=== PATIENT | female | born 1960 | race Caucasian/White ===

== ENCOUNTER 2017-04-22 11:18 | Observation (INO) ==
[2017-04-22] MEDS ORDERED: 0.9 % Sodium Chloride 1,000 ML IVC ONE ×2 (11:44→12:45)
[2017-04-22] MEDS ORDERED: Ondansetron 4 MG/2 ML VIAL IVP ONE (12:02)
[2017-04-22] MEDS ORDERED: Ketorolac 30 MG/ML VIAL IVP ONE (12:02)
[2017-04-22 12:12] LABS: Basophils % 0.4 %; Eosinophils # 0.1 K/mcL (0.0-0.6); Eosinophils % 1.4 %; Hematocrit 43.8 % (35.3-44.9); Hemoglobin 14.9 g/dL (11.5-15.4); Immature Granulocytes % 0.4 % (0-4); Lymphocytes # 2.6 K/mcL (0.6-4.6); Lymphocytes % 27.1 %; Mean Corpuscular Hemoglobin 31.1 pg (28.0-33.3); Mean Corpuscular Volume 91.4 fL (83.0-100.0); Mean Platelet Volume 9.6 fL (9.4-12.4); Monocytes # 0.6 K/mcL (0.0-1.3); Monocytes % 5.8 %; Neutrophils # 6.1 K/mcL (1.6-8.9); Platelet Count 289 K/mcL (140-400); Red Blood Count 4.79 M/mcL (3.82-4.97); Red Cell Distribution Width 13.6 % (11.5-14.5); Segmented Neutrophils % 64.9 %
--- NOTE | 2017-04-22 12:19 | Emergency Department Note ---
Disposition Clinical Impression: Pancreatitis Disposition: Admitted As Inpatient Condition: Fair Time of Disposition: 13:29 Nausea/Vomiting/Diarrhea HPI - General Chief complaint: ED General Medical Stated complaint: headache, body aches, nauseaded Source: patient, family Mode of arrival: ambulatory Limitations: no limitations Nursing Notes Reviewed: Yes Vital Signs Reviewed: Yes - History of Present Illness HPI Narrative: 2 weeks ago missed Michaela noticed the onset of some nausea and diarrhea. She has had 15 loose stools per day for 2 weeks. She is not sure of the last time she had a solid normal meal because nausea has kept her from eating. When she does eat she has some upper abdominal pain that seems to get a little worse. No blood in the stool. She does report that they are somewhat greenish in color and on direct questioning it has an oily consistency to it as well. She does not drink from a well. No ill contacts with similar symptoms. She does not have chickens reptiles and has not had any recent travel. She also reports that about a week ago she had the gradual onset of a headache which is typical for a migraine for her in that it is behind both eyes but this one also involves the neck as well. She has not actually vomited although feels as though she will. She has been dizzy and lightheaded as well. No shortness of breath diaphoresis. She has not run a fever. Normal bowel habits are once a day formed without straining. Last week she was supposed to start on Lyrica and took a few doses but feels like that made some of her symptoms were so she stopped that. Pt Subjective Complaint: nausea, diarrhea, abdominal pain - Related Data Home Medications Medication Instructions Recorded Confirmed ALPRAZolam [Xanax 0.25 MG Tablet] 0.25 mg PO HS 02/13/16 04/22/17 Acyclovir [Zovirax] 400 mg PO BID 02/13/16 04/22/17 Ondansetron HCl 4 mg PO Q6H 02/13/16 04/22/17 Pramipexole [Mirapex] 1 mg PO TID 02/13/16 04/22/17 Temazepam [Restoril] 30 mg PO HS 02/13/16 04/22/17 Venlafaxine HCl [Venlafaxine HCl 225 mg PO DAILY 02/13/16 04/22/17 ER] Pregabalin [Lyrica] 200 mg PO BID 04/22/17 04/22/17 Tramadol HCl [Ultram] 50 mg PO TID PRN 04/22/17 04/22/17 Allergies Allergy/AdvReac Type Severity Reaction Status Date / Time codeine AdvReac Intermediate See Verified 06/15/15 17:58 Comments morphine AdvReac Intermediate Vomiting Verified 06/15/15 17:58 Constitutional: Denies: fever, chills Eyes: Reports: vision change (Transient blurriness on rising along with dizziness and lightheadedness for the last week or so) ENT ED: Denies: ear pain, throat pain, congestion, dysphagia Cardiovascular: Denies: chest pain, palpitations Respiratory: Denies: cough Gastrointestinal: Reports: abdominal pain, nausea, diarrhea. Denies: vomiting, constipation, melena, hematochezia Genitourinary: Denies: urgency, dysuria, frequency, hematuria Musculoskeletal: Reports: myalgia Integumentary: Denies: rash Neurological: Reports: headache, paresthesias (She has some numbness and tingling in her right ankle secondary to a trauma for which she was started on the Lyrica. She has also had some periodic tingling in an ulnar distribution especially right upper extremity for several months now. Neither of these is worse in the last couple of weeks.) Endocrine: Reports: fatigue Past Medical History - Past Medical History Medical history: Reports: migraine, other Surgical history: Reports: hysterectomy, orthopedic, other, other Psychiatric history: Reports: anxiety, depression [employer] history: Reports: no [employer] history - Social History Smoking Status: Current every day smoker Smokeless Tobacco Status: No Alcohol use: Reports: none Drug use: Reports: none Physical Exam - General Limitations: no limitations General appearance: alert, in no apparent distress - Head Head exam: normocephalic - Eye Eye exam: Present: PERRL, EOMI. Absent: scleral icterus - ENT ENT exam: normal oropharynx, mucous membranes dry, TM's normal bilaterally, normal external ear exam - Neck Neck exam: Present: normal inspection, full ROM, tenderness (Mild pain to palpation bilateral paracervical cervical musculature with increased tone.). Absent: meningismus, lymphadenopathy - Chest Chest inspection: Present: normal inspection, symmetric chest wall rise - Respiratory Respiratory exam: Present: normal lung sounds bilaterally. Absent: respiratory distress, wheezes, stridor - Cardiovascular Cardiovascular exam: Present: regular rate, normal rhythm, tachycardia, normal heart sounds. Absent: systolic murmur, diastolic murmur - Abdominal Exam Abdominal exam: Present: soft, tenderness (She reports mild tenderness epigastrium), normal bowel sounds, scar (Consistent with laparoscopic cholecystectomy a year ago). Absent: distention, guarding, rebound, rigidity - Extremities Exam Extremities exam: Present: normal inspection. Absent: pedal edema, calf tenderness (No calf erythema cord or edema) - Back Exam Back exam: Present: normal inspection - Neurological Exam Neurological exam: Present: alert - Psychiatric Psychiatric exam: Present: normal affect, normal mood - Skin Skin exam: Present: warm, dry, intact. Absent: rash Course Vital Signs Temperature 97.6 F 04/22/17 11:30 Pulse Rate 113 04/22/17 11:30 Respiratory Rate 16 04/22/17 11:30 Blood Pressure 103/72 04/22/17 11:30 O2 Sat by Pulse Oximetry 95 04/22/17 11:30 Temperature 97.6 F 04/22/17 11:30 Pulse Rate 78 04/22/17 12:48 Respiratory Rate 16 04/22/17 14:18 Blood Pressure 107/64 04/22/17 14:18 O2 Sat by Pulse Oximetry 98 04/22/17 12:48 Oxygen Delivery Oxygen Delivery Room Air Nausea/Vomiting/Diarrhea - [facility] Narrative Medical decision making narrative: After the first liter of fluid was completed she did not yet need to urinate. She did report feeling better in terms of her headache neck pain abdominal pain and nausea. Another liter was given and started just before 1 PM. After labs all returned she was reexamined. Abdominal exam nondistended positive bowel sounds she has some persistent discomfort on palpation of the epigastrium. Very mild elevation of the lipase. This could be a mild case of pancreatitis which would also go with the oily stools and worsening of pain on by mouth intake for the last couple of weeks. I do not see an indication for imaging at this point. It would be prudent however to keep her nothing by mouth and give her IV fluids to allow this to completely resolve. She does not drink alcohol and has no gallbladder. I commended the reasoning for observing her overnight and she voiced understanding. She was transferred to the floor in improved condition. - Lab Data Lab results reviewed: Yes I reviewed the patient's lab results. Result diagrams: 04/22/17 11:44 04/22/17 11:44 Lab Results 04/22/17 04/22/17 04/22/17 Range/Units 11:44 11:44 11:44 WBC 9.4 (4.3-11.1) K/mcL RBC 4.79 (3.82-4.97) M/mcL Hgb 14.9 (11.5-15.4) g/dL Hct 43.8 (35.3-44.9) % MCV 91.4 (83.0-100.0) fL MCH 31.1 (28.0-33.3) pg MCHC 34.0 (31.6-35.5) g/dL RDW 13.6 (11.5-14.5) % Plt Count 289 (140-400) K/mcL MPV 9.6 (9.4-12.4) fL Immature Gran % 0.4 (0-4) % Seg Neutrophils % 64.9 % Lymphocytes % 27.1 % Monocytes % 5.8 % Eosinophils % 1.4 % Basophils % 0.4 % Neutrophils # 6.1 (1.6-8.9) K/mcL Lymphocytes # 2.6 (0.6-4.6) K/mcL Monocytes # 0.6 (0.0-1.3) K/mcL Eosinophils # 0.1 (0.0-0.6) K/mcL Basophils # 0.0 (0.0-0.2) K/mcL Sodium 140 (136-145) mEq/L Potassium 3.9 (3.5-4.5) mEq/L Chloride 105 (98-109) mEq/L Carbon Dioxide 22 (19-29) mEq/L BUN 10 (7-20) mg/dL Creatinine 0.99 (0.57-1.11) mg/dL Est GFR ( Amer) > 60 (> 60) Est GFR (Non-Af Amer) 58 L (> 60) BUN/Creatinine Ratio 10 (6-26) Glucose 103 H (70-99) mg/dL Calculated Osmolality 289 (280-300) Calcium 9.9 (8.6-10.8) mg/dL Phosphorus 3.4 (2.3-4.7) mg/dL Magnesium 2.3 (1.6-2.6) mg/dL Total Bilirubin 0.4 (0.2-1.2) mg/dL AST 15 (5-34) Units/L ALT 12 (0-55) Units/L Alkaline Phosphatase 188 H (38-126) Units/L Serum Total Protein 8.2 (6.0-8.3) g/dL Albumin 3.8 (3.5-5.0) g/dL Globulin 4.4 H (2.4-3.5) g/dL Albumin/Globulin Ratio 0.9 L (1.1-2.2) Amylase 54 (25-125) Units/L Lipase 91 H (8-78) Units/L Urine Color (Yellow) Urine Clarity (Clear) Urine pH (5.0-8.0) pH Units Ur Specific [place] (1.010-1.025) Urine Protein (Neg-Trace) mg/dL Urine Glucose (UA) (Normal) mg/dL Urine Ketones (Negative) mg/dL Urine Blood (Negative) Urine Nitrite (Negative) Urine Bilirubin (Negative) Urine Urobilinogen (Normal) mg/dL Ur Leukocyte Esterase (Negative) Urine Microscopic RBC (0-3) per hpf Urine Microscopic WBC (0-3) per hpf Ur Squamous Epith Cells (None-Few) per lpf Amorphous Sediment (Few) Urine Bacteria (None-Few) per hpf Urine Mucus (Few) Ur Culture Indicated? (NO) Urine Opiates Screen (Hpuuhj=710) ng/mL Acetaminophen (10-30) mcg/mL Ur Barbiturates Screen (Dlinuq=112) ng/mL Ur Phencyclidine Scrn (Cutoff=25) ng/mL Ur Amphetamines Screen (Pnwpmq=0109) ng/mL U Benzodiazepines Scrn (Bvvibg=929) ng/mL Urine Cocaine Screen (Cutoff= 300) ng/mL U Marijuana (THC) Screen (Cutoff = 50) ng/mL 04/22/17 04/22/17 04/22/17 Range/Units 11:44 12:30 12:30 WBC (4.3-11.1) K/mcL RBC (3.82-4.97) M/mcL Hgb (11.5-15.4) g/dL Hct (35.3-44.9) % MCV (83.0-100.0) fL MCH (28.0-33.3) pg MCHC (31.6-35.5) g/dL RDW (11.5-14.5) % Plt Count (140-400) K/mcL MPV (9.4-12.4) fL Immature Gran % (0-4) % Seg Neutrophils % % Lymphocytes % % Monocytes % % Eosinophils % % Basophils % % Neutrophils # (1.6-8.9) K/mcL Lymphocytes # (0.6-4.6) K/mcL Monocytes # (0.0-1.3) K/mcL Eosinophils # (0.0-0.6) K/mcL Basophils # (0.0-0.2) K/mcL Sodium (136-145) mEq/L Potassium (3.5-4.5) mEq/L Chloride (98-109) mEq/L Carbon Dioxide (19-29) mEq/L BUN (7-20) mg/dL Creatinine (0.57-1.11) mg/dL Est GFR ( Amer) (> 60) Est GFR (Non-Af Amer) (> 60) BUN/Creatinine Ratio (6-26) Glucose (70-99) mg/dL Calculated Osmolality (280-300) Calcium (8.6-10.8) mg/dL Phosphorus (2.3-4.7) mg/dL Magnesium (1.6-2.6) mg/dL Total Bilirubin (0.2-1.2) mg/dL AST (5-34) Units/L ALT (0-55) Units/L Alkaline Phosphatase (38-126) Units/L Serum Total Protein (6.0-8.3) g/dL Albumin (3.5-5.0) g/dL Globulin (2.4-3.5) g/dL Albumin/Globulin Ratio (1.1-2.2) Amylase (25-125) Units/L Lipase (8-78) Units/L Urine Color Yellow (Yellow) Urine Clarity Clear (Clear) Urine pH 6.0 (5.0-8.0) pH Units Ur Specific [place] 1.025 (1.010-1.025) Urine Protein 30 H (Neg-Trace) mg/dL Urine Glucose (UA) Normal (Normal) mg/dL Urine Ketones Negative (Negative) mg/dL Urine Blood Negative (Negative) Urine Nitrite Negative (Negative) Urine Bilirubin Negative (Negative) Urine Urobilinogen Normal (Normal) mg/dL Ur Leukocyte Esterase Negative (Negative) Urine Microscopic RBC 0-3 (0-3) per hpf Urine Microscopic WBC 3-5 H (0-3) per hpf Ur Squamous Epith Cells Few (None-Few) per lpf Amorphous Sediment Few (Few) Urine Bacteria Moderate H (None-Few) per hpf Urine Mucus Many H (Few) Ur Culture Indicated? NO (NO) Urine Opiates Screen Negative (Skezno=073) ng/mL Acetaminophen < 1.0 L (10-30) mcg/mL Ur Barbiturates Screen Negative (Cqgmly=781) ng/mL Ur Phencyclidine Scrn Negative (Cutoff=25) ng/mL Ur Amphetamines Screen Negative (Ykwgeu=6839) ng/mL U Benzodiazepines Scrn Negative (Yabhlc=357) ng/mL Urine Cocaine Screen Negative (Cutoff= 300) ng/mL U Marijuana (THC) Screen Negative (Cutoff = 50) ng/mL
[2017-04-22 12:26] LABS: Alanine Aminotransferase 12 Units/L (0-55); Albumin 3.8 g/dL (3.5-5.0); Albumin/Globulin Ratio 0.9 (1.1-2.2); Alkaline Phosphatase 188 Units/L (38-126); Amylase 54 Units/L (25-125); Aspartate Amino Transferase 15 Units/L (5-34); BUN/Creatinine Ratio 10 (6-26); Bilirubin,Total 0.4 mg/dL (0.2-1.2); Blood Urea Nitrogen 10 mg/dL (7-20); Calcium 9.9 mg/dL (8.6-10.8); Carbon Dioxide 22 mEq/L (19-29); Chloride 105 mEq/L (98-109); Globulin 4.4 g/dL (2.4-3.5); Glucose 103 mg/dL (70-99); Lipase 91 Units/L (8-78); Osmolality,Calculated 289 (280-300); Phosphorous 3.4 mg/dL (2.3-4.7); Potassium 3.9 mEq/L (3.5-4.5); Sodium 140 mEq/L (136-145); Total Protein 8.2 g/dL (6.0-8.3); eGFR For African Americans > 60 (> 60); eGFR For Non-African Americans 58 (> 60)
[2017-04-22 12:54] LABS: Bilirubin,Urine Negative (Negative); Blood,Urine Negative (Negative); Clarity,Urine Clear (Clear); Color,Urine Yellow (Yellow); Glucose,Urine (UA) Normal (Normal); Ketones,Urine Negative (Negative); Leukocyte Esterase,Urine Negative (Negative); Nitrite,Urine Negative (Negative); Protein,Urine 30 mg/dL (Neg-Trace); Specific Gravity,Urine 1.025 (1.010-1.025); Urobilinogen,Urine Normal (Normal)
[2017-04-22 13:00] LABS: Amorphous Sediment,Urine Few (Few); Bacteria,Urine Moderate per hpf (None-Few); Mucus,Urine Many (Few); RBC,Urine 0-3 per hpf (0-3); Squamous Epithelial Cell,Urine Few per lpf (None-Few)
[2017-04-22 13:03] LABS: Amphetamine Screen,Urine Negative ng/mL (Cutoff=1000); Barbiturate Screen,Urine Negative ng/mL (Cutoff=200); Benzodiazepines Screen,Urine Negative ng/mL (Cutoff=200); Cannabinoid Screen,Urine Negative ng/mL (Cutoff = 50); Cocaine Screen,Urine Negative ng/mL (Cutoff= 300); Opiate Screen,Urine Negative ng/mL (Cutoff=300); Phencyclidine Screen,Urine Negative ng/mL (Cutoff=25)
[2017-04-22] MEDS ORDERED: Naloxone 0.4 MG/ML INJ IVP PRN (14:15)
[2017-04-22] MEDS ORDERED: Ketorolac 30 MG/ML VIAL IVP PRN (14:21)
[2017-04-22] MEDS ORDERED: Ondansetron 4 MG/2 ML VIAL IVP PRN ×2 (14:21→15:01)
[2017-04-22] MEDS ORDERED: *HR* LORazepam 2 MG/ML VIAL IVP PRN (14:21)
[2017-04-22] MEDS: D5% in 0.45% NACL 1,000 ML IVC SCH ×2 (14:48→23:06)
[2017-04-23 04:32] VITALS: BP 112/68
[2017-04-23 05:44] LABS: BUN/Creatinine Ratio 8 (6-26); Blood Urea Nitrogen 7 mg/dL (7-20); Calcium 8.9 mg/dL (8.6-10.8); Carbon Dioxide 22 mEq/L (19-29); Chloride 110 mEq/L (98-109); Glucose 119 mg/dL (70-99); Lipase 19 Units/L (8-78); Osmolality,Calculated 291 (280-300); Potassium 4.4 mEq/L (3.5-4.5); Sodium 141 mEq/L (136-145); eGFR For African Americans > 60 (> 60); eGFR For Non-African Americans > 60 (> 60)
[2017-04-23] MEDS ORDERED: *HR* Enoxaparin 40 MG/0.4 ML SYRINGE SQ SCH (06:00)
[2017-04-23] MEDS: D5% in 0.45% NACL 1,000 ML IVC SCH (06:49)
--- NOTE | 2017-04-23 10:16 | Internal Med History&Physical ---
Date of Encounter: 04/23/17 Time of Encounter: 10:14 Assessment and Plan (1) Abdominal pain Current visit: Yes Status: Acute All pain had resolved today. Qualifiers: Abdominal location: generalized Qualified Code(s): R10.84 - Generalized abdominal pain Internal Medicine - H&P: HPI Admitted From: Emergency Dept History of present illness: Ms. Jennings is a 56 year old female admitted through the ED yesterday for abdominal pain. Dr. Marshall felt that the patient had a classic symptoms of pancreatitis although her amylase lipase was negative. She was admitted for observation. This morning she wants to go home. She has no pain. No nausea. Her repeat enzymes were negative. Past Med Surg Social Fam HX - Past Medical History Medical history: migraine, other Psychiatric history: anxiety, depression - Past Surgical History Surgical History: hysterectomy, orthopedic, other, other - Social History Smoking Status: Current every day smoker Smokeless Tobacco Status: No Alcohol use: none Drug use: none - Family History Mother Living Status: Still Living Father History Unknown: Yes Living Status: Still Living Hx Family Cardiac Disorders: Yes Hx Family Respiratory Disorders: No Hx Family Cancer: No Hx Family GI Disorders: No Hx Family Endocrine Disorder: Yes (Father is diabetic) Hx Family Neuromuscular Disorders: No Hx Family Neurologic Disorders: No Hx Family HEENT Disorders: No Hx Family Autoimmune Disorders: No Internal Medicine - H&P: Meds ALPRAZolam [Xanax 0.25 MG Tablet] 0.25 mg PO HS 02/13/16 [History] Acyclovir [Zovirax] 400 mg PO BID 02/13/16 [History] Ondansetron HCl 4 mg PO Q6H 02/13/16 [History] Pramipexole [Mirapex] 1 mg PO TID 02/13/16 [History] Temazepam [Restoril] 30 mg PO HS 02/13/16 [History] Venlafaxine HCl [Venlafaxine HCl ER] 225 mg PO DAILY 02/13/16 [History] Pregabalin [Lyrica] 200 mg PO BID 04/22/17 [History] Tramadol HCl [Ultram] 50 mg PO TID PRN 04/22/17 [History] Allergies codeine Adverse Reaction (Intermediate, Verified 06/15/15 17:58) See Comments STATES FEELS LIKE ON SPEED morphine Adverse Reaction (Intermediate, Verified 06/15/15 17:58) Vomiting All Systems PM: A 10-system review of systems was performed and is negative for pertinent findings except as documented above in the HPI. - Constitutional Constitutional: no chills, no fever(s), no night sweats - EENT Eyes: no change in vision, no discharge, no pain, no photophobia - Cardiovascular Cardiovascular ROS IM: no chest pain, no diaphoresis, no dyspnea, no lightheadedness, no palpitations, no syncope - Respiratory Respiratory: no cough, no dyspnea, no wheezing, no excessive phlegm production - Gastrointestinal Gastrointestinal: no abdominal pain, no diarrhea, no hematemesis, no hematochezia, no melena, no nausea, no vomiting - Constitutional Vitals: Temp Pulse Resp BP Pulse Ox 97.7 F 64 18 112/68 94 04/23/17 08:00 04/23/17 08:00 04/23/17 08:00 04/23/17 08:00 04/23/17 04:00 General appearance: Present: A&O X 3, pleasant, no acute distress - Respiratory Respiratory exam: Present: CTAB. Absent: accessory muscle use, rales, rhonchi, wheezes - Cardiovascular Cardiovascular exam: Present: RRR, +S1, +S2. Absent: diastolic murmur, gallop, rubs, systolic murmur - GI/Abdominal GI/Abdominal exam: Present: normal bowel sounds, soft, no peritoneal signs. Absent: distended, tenderness - Extremities Exam Extremities exam: Present: warm, radial pulses palpable and symetrical. Absent : calf tenderness, cyanotic, pedal edema Internal Med - H&P Results - Labs CBC & Chem 7: 04/22/17 11:44 04/23/17 05:26 Labs: BMP 04/23/17 05:26 Sodium 141 Potassium 4.4 Chloride 110 H Carbon Dioxide 22 BUN 7 Creatinine 0.85 Glucose 119 H Calcium 8.9
--- NOTE | 2017-04-23 10:18 | Discharge Summary ---
Date of Encounter: 04/23/17 Time of Encounter: 10:16 - Discharge Diagnosis (1) Abdominal pain Priority: Primary Status: Acute Qualifiers: Abdominal location: generalized Qualified Code(s): R10.84 - Generalized abdominal pain - Discharge Medications Home Medications: ALPRAZolam [Xanax 0.25 MG Tablet] 0.25 mg PO HS 02/13/16 [History] Acyclovir [Zovirax] 400 mg PO BID 02/13/16 [History] Ondansetron HCl 4 mg PO Q6H 02/13/16 [History] Pramipexole [Mirapex] 1 mg PO TID 02/13/16 [History] Temazepam [Restoril] 30 mg PO HS 02/13/16 [History] Venlafaxine HCl [Venlafaxine HCl ER] 225 mg PO DAILY 02/13/16 [History] Pregabalin [Lyrica] 200 mg PO BID 04/22/17 [History] Tramadol HCl [Ultram] 50 mg PO TID PRN 04/22/17 [History] Allergies/Adverse Reactions: Allergies codeine Adverse Reaction (Intermediate, Verified 06/15/15 17:58) See Comments STATES FEELS LIKE ON SPEED morphine Adverse Reaction (Intermediate, Verified 06/15/15 17:58) Vomiting Date of admission: 04/22/17 13:54 Primary care physician: Alexandrea Mcleod CNP Anticipated date of discharge: 04/23/17 - Patient Status Disposition: Home, Self-Care Condition: Good Functional capacity at discharge: independent ambulation Overall status at discharge: patient is back to baseline - Discharge Instructions Follow Up With: Alexandrea Mcleod CNP [Primary Care Provider] - - Diet and Activity Activity: increase activity as tolerated Diet: advance to your usual diet Interval History: 2 weeks ago missed Michaela noticed the onset of some nausea and diarrhea. She has had 15 loose stools per day for 2 weeks. She is not sure of the last time she had a solid normal meal because nausea has kept her from eating. When she does eat she has some upper abdominal pain that seems to get a little worse. No blood in the stool. She does report that they are somewhat greenish in color and on direct questioning it has an oily consistency to it as well. She does not drink from a well. No ill contacts with similar symptoms. She does not have chickens reptiles and has not had any recent travel. She also reports that about a week ago she had the gradual onset of a headache which is typical for a migraine for her in that it is behind both eyes but this one also involves the neck as well. She has not actually vomited although feels as though she will. She has been dizzy and lightheaded as well. No shortness of breath diaphoresis. She has not run a fever. Normal bowel habits are once a day formed without straining. Last week she was supposed to start on Lyrica and took a few doses but feels like that made some of her symptoms were so she stopped that. This morning she is asymptomatic and wants to go home. Hospital course: Ms. Jennings is a 56 year old female Time spent discussing smoking cessation with patient: 3 to 10 minutes - Time Spent with Patient Total time spent providing and/or coordinating discharge services: Less than 30 minutes - Constitutional Vitals: Temp Pulse Resp BP Pulse Ox 97.7 F 64 18 112/68 94 04/23/17 08:00 04/23/17 08:00 04/23/17 08:00 04/23/17 08:00 04/23/17 04:00 General appearance: Present: A&O X 3, pleasant, no acute distress - Respiratory Respiratory exam: Present: CTAB. Absent: accessory muscle use, rales, rhonchi, wheezes - Cardiovascular Cardiovascular exam: Present: RRR, +S1, +S2. Absent: diastolic murmur, gallop, rubs, systolic murmur - GI/Abdominal GI/Abdominal exam: Present: normal bowel sounds, soft, no peritoneal signs. Absent: distended, tenderness - Extremities Exam Extremities exam: Present: warm, radial pulses palpable and symetrical. Absent : calf tenderness, cyanotic, pedal edema
== END 2017-04-23 11:18 | disposition home or self-care (01) ==
LOC: INPGRE 11:18 → EMEROOGRE 11:18 → INPGRE 14:18
PROVIDERS: ADMIT Internal Medicine; ATTEND Internal Medicine

== ENCOUNTER 2022-03-30 07:41 | Observation (INO) ==
[2022-03-30] MEDS ORDERED: Ondansetron 4 MG/2 ML VIAL IVP ONE (08:00)
[2022-03-30] MEDS ORDERED: *HR* HYDROmorphone (PF) 1 MG/ML SYRINGE IVP ONE (08:00)
[2022-03-30] MEDS ORDERED: 0.9 % Sodium Chloride 1,000 ML IV ONE (08:00)
[2022-03-30 08:16] LABS: Basophils % 0.2 %; Eosinophils # 0.2 K/mcL (0.0-0.6); Eosinophils % 3.3 %; Hematocrit 43.5 % (35.3-44.9); Hemoglobin 14.2 g/dL (11.5-15.4); Immature Granulocytes % 0.4 % (0-4); Lymphocytes # 0.8 K/mcL (0.6-4.6); Lymphocytes % 14.9 %; Mean Corpuscular HGB Conc 32.6 g/dL (31.6-35.5); Mean Platelet Volume 9.2 fL (9.4-12.4); Monocytes # 0.5 K/mcL (0.0-1.3); Monocytes % 8.3 %; Platelet Count 247 K/mcL (140-400); Red Blood Count 4.89 M/mcL (3.82-4.97); Red Cell Distribution Width 13.5 % (11.5-14.5); Segmented Neutrophils % 72.9 %; White Blood Count 5.5 K/mcL (4.3-11.1)
[2022-03-30 08:34] LABS: BUN/Creatinine Ratio 12 (6-26); Blood Urea Nitrogen 11 mg/dL (6-20); Calcium 9.1 mg/dL (8.6-10.3); Carbon Dioxide 24 mEq/L (23-29); Chloride 105 mEq/L (98-107); Glucose 162 mg/dL (70-105); Osmolality,Calculated 289 (280-300); Potassium 3.6 mEq/L (3.5-5.1); Sodium 138 mEq/L (136-145); eGFR For African Americans > 60 (> 60); eGFR For Non-African Americans > 60 (> 60)
[2022-03-30] MEDS ORDERED: Melatonin 3 MG TABLET PO PRN (09:45)
[2022-03-30] MEDS ORDERED: Naloxone 0.4 MG/ML INJ IVP PRN (09:45)
[2022-03-30] MEDS ORDERED: 0.9 % Sodium Chloride 1,000 ML IVC SCH (09:45)
[2022-03-30] MEDS ORDERED: Mag Hydrox/Al Hydrox/Simeth 30 ML UDC PO PRN (09:45)
[2022-03-30] MEDS ORDERED: Acetaminophen 325 MG TABLET PO PRN (09:45)
[2022-03-30] MEDS ORDERED: MOM Conc 10 ML UD.LIQ PO PRN (09:45)
[2022-03-30] MEDS ORDERED: D5% in Water 1,000 ML IVC PRN (09:50)
[2022-03-30] MEDS ORDERED: *HR* Dextrose 50 % in Water (Syg) 50 ML SYRINGE IVP PRN (09:50)
[2022-03-30] MEDS ORDERED: Dextrose 4 GM Chewable Tablets PO PRN ×2 (09:50)
[2022-03-30] MEDS ORDERED: *HR* HYDROcodone/Acet 5/325 mg TABLET PO PRN (09:51)
[2022-03-30 10:19] LABS: Bilirubin,Urine Small (Negative); Blood,Urine Moderate (Negative); Clarity,Urine Clear (Clear); Color,Urine Amber (Yellow); Glucose,Urine (UA) Normal (Normal); Ketones,Urine Negative (Negative); Leukocyte Esterase,Urine Negative (Negative); Nitrite,Urine Negative (Negative); PH,Urine 5.5 pH Units (5.0-8.0); Protein,Urine 100 mg/dL (Neg-Trace); Specific Gravity,Urine >= 1.030 (1.010-1.025); Urobilinogen,Urine Normal (Normal)
[2022-03-30 10:28] LABS: Squamous Epithelial Cell,Urine Moderate per hpf (None-Few)
[2022-03-30] MEDS: MetroNIDAZOLE 500 MG/100 ML 500 MG/100 ML BAG IVPB SCH ×3 (10:41→23:56)
[2022-03-30] MEDS: Gabapentin 300 MG CAPSULE PO SCH ×3 (10:43→21:25)
[2022-03-30] MEDS: hydrOXYzine pamoate 25 MG CAPSULE PO SCH (10:43)
[2022-03-30] MEDS: Vilazodone Hcl [Viibryd] 20 MG Tablet PO SCH (10:43)
[2022-03-30] MEDS: BuPROPion SR (12 HR) 150 MG TABLET PO SCH (10:43)
[2022-03-30] MEDS: *HR* Nateglinide 120 MG TABLET PO SCH ×2 (10:44→17:42)
[2022-03-30] MEDS: Insulin LISPRO 300 UNITS/3 ML VIAL SUBQ SCH ×5 (12:27→23:14)
[2022-03-30] MEDS: *HR* HYDROcodone/Acet 5/325 mg TABLET PO PRN ×2 (15:59→21:25)
[2022-03-30] MEDS: Ondansetron 4 MG/2 ML VIAL IVP PRN ×2 (16:00→22:02)
[2022-03-30] MEDS: 0.9 % Sodium Chloride 1,000 ML IVC SCH ×2 (17:43→21:17)
[2022-03-30] MEDS ORDERED: Insulin LISPRO 300 UNITS/3 ML VIAL SUBQ SCH (21:00)
[2022-03-31] MEDS: Ondansetron 4 MG/2 ML VIAL IVP PRN ×3 (05:11→18:02)
[2022-03-31] MEDS: *HR* Enoxaparin 40 MG/0.4 ML SYRINGE SQ SCH (05:12)
[2022-03-31 07:25] LABS: Basophils % 0.3 %; Eosinophils # 0.1 K/mcL (0.0-0.6); Eosinophils % 3.2 %; Hematocrit 40.3 % (35.3-44.9); Hemoglobin 12.8 g/dL (11.5-15.4); Immature Granulocytes % 0.3 % (0-4); Lymphocytes # 0.7 K/mcL (0.6-4.6); Lymphocytes % 21.1 %; Mean Corpuscular HGB Conc 31.8 g/dL (31.6-35.5); Mean Corpuscular Volume 91.4 fL (83.0-100.0); Mean Platelet Volume 9.6 fL (9.4-12.4); Monocytes # 0.5 K/mcL (0.0-1.3); Monocytes % 15.9 %; Neutrophils # 1.8 K/mcL (1.6-8.9); Platelet Count 206 K/mcL (140-400); Red Blood Count 4.41 M/mcL (3.82-4.97); Red Cell Distribution Width 13.4 % (11.5-14.5); Segmented Neutrophils % 59.2 %; White Blood Count 3.1 K/mcL (4.3-11.1)
[2022-03-31] MEDS: 0.9 % Sodium Chloride 1,000 ML IVC SCH ×2 (07:35→16:09)
[2022-03-31] MEDS: Gabapentin 300 MG CAPSULE PO SCH ×3 (07:37→21:56)
[2022-03-31] MEDS: *HR* Nateglinide 120 MG TABLET PO SCH ×3 (07:37→16:09)
[2022-03-31] MEDS: hydrOXYzine pamoate 25 MG CAPSULE PO SCH (07:37)
[2022-03-31] MEDS: BuPROPion SR (12 HR) 150 MG TABLET PO SCH (07:37)
[2022-03-31] MEDS: MetroNIDAZOLE 500 MG/100 ML 500 MG/100 ML BAG IVPB SCH ×2 (07:38→16:09)
[2022-03-31 07:54] LABS: Platelet Estimate Normal (Normal); Toxic Granulation Present (Not Present)
[2022-03-31 07:58] LABS: Alanine Aminotransferase 20 Units/L (7-52); Albumin 3.2 g/dL (3.5-5.7); Alkaline Phosphatase 192 Units/L (34-104); Aspartate Amino Transferase 19 Units/L (13-39); BUN/Creatinine Ratio 10 (6-26); Bilirubin,Total 0.3 mg/dL (0.3-1.0); Blood Urea Nitrogen 8 mg/dL (6-20); Calcium 8.6 mg/dL (8.6-10.3); Carbon Dioxide 21 mEq/L (23-29); Chloride 109 mEq/L (98-107); Globulin 3.1 g/dL (2.4-3.5); Glucose 154 mg/dL (70-105); Magnesium 1.7 mg/dL (1.6-2.6); Osmolality,Calculated 285 (280-300); Potassium 3.8 mEq/L (3.5-5.1); Sodium 137 mEq/L (136-145); Total Protein 6.3 g/dL (6.4-8.9); eGFR For African Americans > 60 (> 60); eGFR For Non-African Americans > 60 (> 60)
[2022-03-31] MEDS: Vilazodone Hcl [Viibryd] 20 MG Tablet PO SCH (09:04)
[2022-03-31] MEDS: Insulin LISPRO 300 UNITS/3 ML VIAL SUBQ SCH ×3 (11:33→22:08)
[2022-03-31] MEDS: *HR* HYDROcodone/Acet 5/325 mg TABLET PO PRN ×2 (16:20→23:01)
[2022-04-01] MEDS: MetroNIDAZOLE 500 MG/100 ML 500 MG/100 ML BAG IVPB SCH ×2 (00:38→08:26)
[2022-04-01] MEDS: Insulin LISPRO 300 UNITS/3 ML VIAL SUBQ SCH ×2 (05:02→11:41)
[2022-04-01] MEDS: *HR* Enoxaparin 40 MG/0.4 ML SYRINGE SQ SCH (06:24)
[2022-04-01 06:58] VITALS: RESP 16
[2022-04-01] MEDS: Gabapentin 300 MG CAPSULE PO SCH (08:22)
[2022-04-01] MEDS: hydrOXYzine pamoate 25 MG CAPSULE PO SCH (08:22)
[2022-04-01] MEDS: BuPROPion SR (12 HR) 150 MG TABLET PO SCH (08:22)
[2022-04-01] MEDS: *HR* Nateglinide 120 MG TABLET PO SCH ×2 (08:22→11:41)
[2022-04-01] MEDS: 0.9 % Sodium Chloride 1,000 ML IVC SCH (08:24)
[2022-04-01 09:29] LABS: C.difficile Toxin A/B Gene PCR Not detected (Not detect); Campylobacter by PCR Not detected (Not detect); Enteroaggregative E.coli(EAEC) Not detected (Not detect); Enteropathogenic E.coli(EPEC) Not detected (Not detect); Enterotoxigenic E.coli (ETEC) Not detected (Not detect); Plesiomonas shigelloides PCR Not detected (Not detect); Salmonella PCR Not detected (Not detect); Shigalike tox-prod E coli STEC Not detected (Not detect); Vibrio PCR Not detected (Not detect); Vibrio cholerae PCR Not detected (Not detect); Yersinia enterocolitica PCR Not detected (Not detect)
[2022-04-01 09:30] LABS: Adenovirus F 40/41 PCR Not detected (Not detect); Astrovirus PCR Not detected (Not detect); Cryptosporidium by PCR Not detected (Not detect); Cyclospora cayetanensis PCR Not detected (Not detect); Entamoeba histolytica PCR Not detected (Not detect); Giardia lamblia PCR Not detected (Not detect); Norovirus GI/GII PCR Not detected (Not detect); Rotavirus A PCR Not detected (Not detect); Sapovirus PCR Not detected (Not detect); Shig/EnteroinvasiveE coli EIEC Not detected (Not detect)
[2022-04-01] MEDS: Vilazodone Hcl [Viibryd] 20 MG Tablet PO SCH (09:51)
[2022-04-01 11:18] VITALS: BP 114/81; PULSE 71; TEMP 98.6; O2SAT 96
== END 2022-04-01 13:58 | disposition home or self-care (01) ==
LOC: INPGRE 07:41 → EMEROOGRE 07:41 → INPGRE 10:10
PROVIDERS: ADMIT Family Medicine; ATTEND Family Medicine